=== PATIENT | female | born 1990 | race Caucasian/White ===

== ENCOUNTER 2016-05-01 13:34 | Emergency (ER) | payer OTHER ==
[~2016-05-01] VITALS: Ht 157.5 cm; Wt 54.5 kg
[~2016-05-01 13:34] MED LIST: AZIT250T94 PO; IBUP-1542 PO
[2016-05-01 13:50] VITALS: Ht 157.5 cm; Wt 54.5 kg
[2016-05-01] MEDS ORDERED: AZIT250T94 PO (14:22)
[2016-05-01] MEDS ORDERED: D-ME473S18 PO (14:22)
[2016-05-01] MEDS ORDERED: IBUP-1542 PO (14:22)
--- NOTE | 2016-05-01 14:32 | ERD ---
ER Documentation Chief Complaint Date/Time DATE: 05/01/16 TIME: 14:25 Chief Complaint Cough and body aches. HPI This 25-year-old female presents with a 2 day history of productive cough, body aches and fever. She has sore throat nasal congestion as well. She denies vomiting, abdominal pain, diarrhea, neck stiffness, rashes. ROS All systems reviewed and are negative except as per history of present illness. Medications Home Meds Active Scripts Dextromethorphan Hb-Promethazine Hcl (Promethazine DM Syrup) 473 Ml Syrup, 5 ML PO Q6H Y for COUGH, #4 OZ Prov:RADHA BRAGA MD 05/01/16 Azithromycin* (Zithromax*) 250 Mg Tablet, 250 MG PO .ZPACK DIRECTED, #6 TAB TAKE 500 MG (2 TABS) THE FIRST DAY THEN 250 MG (1 TAB) DAYS 2-5 Prov:RADHA BRAGA MD 05/01/16 Ibuprofen* (Motrin*) 600 Mg Tab, 600 MG PO Q6, #15 TAB Prov:RADHA BRAGA MD 05/01/16 Ibuprofen* (Motrin*) 600 Mg Tab, 600 MG PO Q6H Y for PAIN AND OR ELEVATED TEMP, #30 TAB Prov:LISSY ANN PA-C 07/31/15 Azithromycin* (Zithromax*) 250 Mg Tablet, 250 MG PO .ZPACK DIRECTED, #6 TAB TAKE 500 MG (2 TABS) THE FIRST DAY THEN 250 MG (1 TAB) DAYS 2-5 Prov:LISSY ANN PA-C 07/31/15 Allergies Allergies: Coded Allergies: Penicillins (Verified Allergy, Mild, 12/16/13) PMhx/Soc History of Surgery: Yes (TUBE LIGATION) Anesthesia Reaction: No Hx Neurological Disorder: No Hx Respiratory Disorders: No Hx Cardiac Disorders: No Hx Psychiatric Problems: No Hx Miscellaneous Medical Probl: No Hx Alcohol Use: No Hx Substance Use: No Hx Tobacco Use: No Smoking Status: Never smoker Physical Exam Physical Exam Const: [] Alert, [id number]. Head: Atraumatic Eyes: Normal Conjunctiva ENT: Normal External Ears, Nose and Mouth. TMs and oropharynx normal. Neck: Full range of motion..~ No meningismus. Resp: Clear to auscultation bilaterally Cardio: Regular rate and rhythm, no murmurs Abd: Soft, non tender, non distended. Normal bowel sounds Skin: No petechiae or rashes Back: No midline or flank tenderness Ext: No cyanosis, or edema Neur: Awake and alert Psych: Normal Mood and Affect Procedures/MDM Patient presents with acute febrile illness, body aches and URI symptoms consistent with a viral illness or influenza. She has productive cough will be discharged home with a prescription of promethazine and ibuprofen. Patient will be given a prescription for Zithromax but encouraged to hold onto it for 3- 4 days and take only for persistent productive cough but otherwise allow 2-4 days for viral illness to resolve. The patient was stable with no new complaints during the ER course. Clinically, there is no current evidence to suggest meningitis, sepsis, acute abdomen, pneumonia, acute coronary syndrome, pulmonary embolism, or any other emergent condition appearing to require further evaluation or hospitalization. The patient should certainly return for any new or worsening symptoms per the aftercare instructions. They should otherwise follow-up with her primary care doctor for reevaluation this week. Departure Diagnosis: Primary Impression: Upper respiratory infection URI type: unspecified URI Qualified Code: J06.9 - Upper respiratory tract infection, unspecified type Condition: Stable Patient Instructions: Acute Bronchitis, Fever Control (Adult), Uri, Viral, No Abx (Adult) Additional Instructions: Likely viral illness or influenza which should resolve without antibiotics in 3- 5 days. Okay to hold antibiotics 3-4 days for productive mucus. RADHA BRAGA MD May 01, 2016 14:32
== END 2016-05-01 14:40 | disposition home or self-care (01) ==
LOC: FTE 13:34
DX: J06.9 Acute upper respiratory infection, unspecified (principal)
CPT/HCPCS: 99284

== ENCOUNTER 2016-09-06 22:22 | Emergency (ER) | payer SELFPAY ==
[~2016-09-06] VITALS: Ht 162.6 cm; Wt 54.5 kg
[~2016-09-06 22:22] MED LIST changes: +D-ME473S18 PO
[2016-09-07 00:04] VITALS: Ht 162.6 cm; Wt 54.5 kg
[2016-09-07] MEDS ORDERED: ONDA4TAB14 PO (00:55)
[2016-09-07] MEDS ORDERED: LOPE2CAP PO (00:55)
--- NOTE | 2016-09-07 05:46 | ERA ---
ER Documentation Chief Complaint Date/Time DATE: 09/07/16 TIME: 05:44 Chief Complaint DIARRHEA STARTED EARLIER TODAY, NAUSEA, ABDOMINAL PAIN HPI This is a 26-year-old female who presents with nausea and diarrhea 3 days. Patient has been able to tolerate p.o. describes the diarrhea as watery 3 per day. Patient denies anorexia, weight loss, migrating pain, constipation, postprandial abdominal pain, new or recently changed medications, genital pain or ingestion of new or undercooked food. Patient has not done anything at this time to relieve the symptoms. ROS All systems reviewed and are negative except as per history of present illness. Medications Home Meds Active Scripts Loperamide Hcl* (Imodium*) 2 Mg Capsule, 2 MG PO .AFTER EA LOOSE BM Y for DIARRHEA, #10 TAB Prov:VENKAT RIBERA PA-C 09/07/16 Ondansetron (Ondansetron Odt) 4 Mg Tab.rapdis, 4 MG PO Q6H Y for NAUSEA AND/OR VOMITING, #10 TAB Prov:VENKAT RIBERA PA-C 09/07/16 Dextromethorphan Hb-Promethazine Hcl (Promethazine DM Syrup) 473 Ml Syrup, 5 ML PO Q6H Y for COUGH, #4 OZ Prov:RADHA BRAGA MD 05/01/16 Azithromycin* (Zithromax*) 250 Mg Tablet, 250 MG PO .ZPACK DIRECTED, #6 TAB TAKE 500 MG (2 TABS) THE FIRST DAY THEN 250 MG (1 TAB) DAYS 2-5 Prov:RADHA BRAGA MD 05/01/16 Ibuprofen* (Motrin*) 600 Mg Tab, 600 MG PO Q6, #15 TAB Prov:RADHA BRAGA MD 05/01/16 Ibuprofen* (Motrin*) 600 Mg Tab, 600 MG PO Q6H Y for PAIN AND OR ELEVATED TEMP, #30 TAB Prov:LISSY ANN PA-C 07/31/15 Azithromycin* (Zithromax*) 250 Mg Tablet, 250 MG PO .ZPACK DIRECTED, #6 TAB TAKE 500 MG (2 TABS) THE FIRST DAY THEN 250 MG (1 TAB) DAYS 2-5 Prov:LISSY ANN PA-C 07/31/15 Allergies Allergies: Coded Allergies: Penicillins (Verified Allergy, Mild, 12/16/13) PMhx/Soc Medical and Surgical Hx: pt denies Medical Hx, pt denies Surgical Hx History of Surgery: Yes (TUBE LIGATION) Anesthesia Reaction: No Hx Neurological Disorder: No Hx Respiratory Disorders: No Hx Cardiac Disorders: No Hx Psychiatric Problems: No Hx Miscellaneous Medical Probl: No Hx Alcohol Use: No Hx Substance Use: No Hx Tobacco Use: No Smoking Status: Never smoker Physical Exam Vitals Vital Signs Date Time Temp Pulse Resp B/P Pulse Ox O2 Delivery O2 Flow Rate FiO2 09/07/16 00:04 98.4 85 18 133/81 100 Physical Exam Const: Well-appearing well-developed 26-year-old female who is sitting up in the exam bed on presentation Head: Atraumatic Eyes: Normal Conjunctiva ENT: Normal External Ears, Nose and Mouth. Neck: Full range of motion..~ No meningismus. Resp: Clear to auscultation bilaterally Cardio: Regular rate and rhythm, no murmurs Abd: Hyperactive bowel sounds. Soft, non tender, non distended. No McBurney 's point tenderness. Skin: No petechiae or rashes Back: No midline or flank tenderness Ext: No cyanosis, or edema Neur: Awake and alert Psych: Normal Mood and Affect Procedures/MDM Well-appearing 18-year-old female presenting with nausea and diarrhea 3 days. Patient's loose stools are 2-3 times per day. No specific characteristics were able to be given. Patient was given a test which was negative. Patient had no abdominal tenderness and I have a very low suspicion for appendicitis. Patient was evaluated and worked up for abdominal discomfort. Patient was given Zofran in the ED with resolution of nausea. The workup included test which was negative. The current most likely diagnosis is viral gastroenteritis. The treatment plan will thus include loperamide to control diarrhea as well as Zofran for the nausea.. At this time I do not suspect appendicitis, ectopic , ovarian cyst, PID , UTI, intestinal ischemia, peritonitis, intestinal obstruction, perforated viscus, acute pancreatitis, cholelithiasis, cholangitis, mechanical obstruction , or AAA. On repeat exam, the abdominal exam remains unchanged with no tenderness and minimal hyperactive bowel sounds. The patient is well appearing, and tolerates PO. I have spoke with the patient regarding their condition and future management. They have verbally responded that they understand their status and treatment plan. The patients vitals are stable, and their current condition is appropriate for discharge. The patient will be given discharge instructions with return precautions. Departure Diagnosis: Primary Impression: Viral gastroenteritis due to [place]-like agent Condition: Stable Patient Instructions: Gastroenteritis, Viral (6Y-Adult) Additional Instructions: Follow up with your PCP within the next 1-3 days for a more thorough evaluation and a possible referral to a specialist. Return the the emergency department immediately if symptoms worsen or change. If you have any questions regarding medications, ask your pharmacist or us before you leave. If any adverse reactions occur while taking your medications, discontinue the treatment and return to the emergency department immediately. Take your medications as directed, and complete the entire course of treatment. VENKAT RIBERA PA-C Sep 07, 2016 05:46
== END 2016-09-07 01:05 | disposition home or self-care (01) ==
LOC: FTE 22:22
DX: A08.4 Viral intestinal infection, unspecified (principal)
CPT/HCPCS: 99283

== ENCOUNTER 2016-09-17 12:47 | Emergency (ER) | payer SELFPAY ==
[~2016-09-17] VITALS: Ht 160 cm; Wt 56.0 kg
[~2016-09-17 12:47] MED LIST changes: +LOPE2CAP PO; +ONDA4TAB14 PO
[2016-09-17 13:01] VITALS: Ht 160 cm; Wt 56.0 kg
[2016-09-17] MEDS ORDERED: EPIN0.3P4 INJ (13:42)
[2016-09-17] MEDS ORDERED: DIPH12.59 PO (13:42)
[2016-09-17] MEDS ORDERED: DIPHENHYDRAMINE 2.5 MG/ML 5ML CUP PO ONE (14:00)
[2016-09-17] MEDS ORDERED: DEXAMETHASONE 10 MG/ML 1 ML INJ IM ONE (14:00)
--- NOTE | 2016-09-17 16:26 | ERD ---
ER Documentation Chief Complaint Date/Time DATE: 09/17/16 TIME: 16:24 Chief Complaint splashed with cleaning solution yesterday-rash throughout body today HPI Patient is a 26-year-old female with no medical problems who presents with a rash. She says that she has a rash to her whole body. She said that it started when she had a "chemical disinfectant" splash on her right thigh last night. She works in cleaning services. She said 3 hours after the contact with the cleaning solution she felt dizzy, nausea, headache, and the rash started. The rash has gotten worse today. She denies trouble breathing or swallowing. She has no treatment as of yet. She said that she is not able to take pills and is recommended a shot of steroids instead of pills. She does not know the name of her primary doctor. Upon review of old medical records the patient has multiple visits for various complaints. ROS All systems reviewed and are negative except as per history of present illness. Medications Home Meds Active Scripts Diphenhydramine Hcl* (Diphenhydramine Hcl*) 12.5 Mg/5 Ml Elixir, 10 ML PO Q6H Y for ITCHING/RASH, #8 OZ Prov:RADHAMES COTTO MD 09/17/16 Epinephrine (Epipen 2-Saleem) 0.3 Mg/0.3 Ml Pen.injctr, 1 EA INJ ONCE Y for ALLERGIC REACTION, #1 EA Prov:RADHAMES COTTO MD 09/17/16 Loperamide Hcl* (Imodium*) 2 Mg Capsule, 2 MG PO .AFTER EA LOOSE BM Y for DIARRHEA, #10 TAB Prov:VENKAT RIBERA PA-C 09/07/16 Ondansetron (Ondansetron Odt) 4 Mg Tab.rapdis, 4 MG PO Q6H Y for NAUSEA AND/OR VOMITING, #10 TAB Prov:VENKAT RIBERA PA-C 09/07/16 Dextromethorphan Hb-Promethazine Hcl (Promethazine DM Syrup) 473 Ml Syrup, 5 ML PO Q6H Y for COUGH, #4 OZ Prov:RADHA BRAGA MD 05/01/16 Azithromycin* (Zithromax*) 250 Mg Tablet, 250 MG PO .MARCUS DIRECTED, #6 TAB TAKE 500 MG (2 TABS) THE FIRST DAY THEN 250 MG (1 TAB) DAYS 2-5 Prov:RADHA BRAGA MD 05/01/16 Ibuprofen* (Motrin*) 600 Mg Tab, 600 MG PO Q6, #15 TAB Prov:RADHA BRAGA MD 05/01/16 Ibuprofen* (Motrin*) 600 Mg Tab, 600 MG PO Q6H Y for PAIN AND OR ELEVATED TEMP, #30 TAB Prov:LISSY ANN PA-C 07/31/15 Azithromycin* (Zithromax*) 250 Mg Tablet, 250 MG PO .ZPACK DIRECTED, #6 TAB TAKE 500 MG (2 TABS) THE FIRST DAY THEN 250 MG (1 TAB) DAYS 2-5 Prov:LISSY ANN PA-C 07/31/15 Allergies Allergies: Coded Allergies: Penicillins (Verified Allergy, Mild, 09/17/16) PMhx/Soc History of Surgery: Yes (TUBE LIGATION) Anesthesia Reaction: No Hx Neurological Disorder: No Hx Respiratory Disorders: No Hx Cardiac Disorders: No Hx Psychiatric Problems: No Hx Miscellaneous Medical Probl: No Hx Alcohol Use: No Hx Substance Use: No Hx Tobacco Use: No Smoking Status: Never smoker FmHx Family History: diabetes Physical Exam Vitals Vital Signs Date Time Temp Pulse Resp B/P Pulse Ox O2 Delivery O2 Flow Rate FiO2 09/17/16 13:01 98.8 112 18 133/71 99 Physical Exam Const: No acute distress Head: Atraumatic Eyes: Normal Conjunctiva ENT: Normal External Ears, Nose and Mouth. No oropharyngeal swelling Neck: Full range of motion..~ No meningismus. No stridor over the neck Resp: Clear to auscultation bilaterally Cardio: Regular rate and rhythm, no murmurs Abd: Soft, non tender, non distended. Normal bowel sounds Skin: Coalescing urticaria diffusely throughout the body which blanches Back: No midline or flank tenderness Ext: No cyanosis, or edema Neur: Awake and alert Psych: Normal Mood and Affect Results 24 hrs Current Medications Medications (Trade) Dose Ordered Sig/[place]erson Route PRN Reason Start Time Stop Time Status Last Admin Dose Admin Dexamethasone (Decadron) 10 mg ONCE ONCE IM 09/17/16 14:00 09/17/16 14:01 DC 09/17/16 13:53 Diphenhydramine HCl (Benadryl Liquid Cup) 25 mg ONCE ONCE PO 09/17/16 14:00 09/17/16 14:01 DC 09/17/16 13:53 Procedures/MDM Patient is a 26-year-old female presents with what appears to be an acute allergic reaction. The patient will be given Decadron IM and Benadryl liquid. She will be given a prescription for Benadryl liquid as well as an EpiPen. There is no signs of angioedema at this time. I believe outpatient management is appropriate. I told the patient to avoid contact with this cleaning solution in the future. She can return for any worsening symptoms. The patient understands the plan is okay for discharge at this time. Departure Diagnosis: Primary Impression: Allergic reaction Encounter type: initial encounter Qualified Code: T78.40XA - Allergic reaction, initial encounter Additional Impression: Rash Condition: Fair Patient Instructions: First Aid: Allergic Reactions Additional Instructions: Call your primary care doctor TOMORROW for an appointment during the next 1-2 days.See the doctor sooner or return here if your condition worsens before your appointment time. RADHAMES COTTO MD Sep 17, 2016 16:26
== END 2016-09-17 14:20 | disposition home or self-care (01) ==
LOC: FTE 12:47
DX: R21 Rash and other nonspecific skin eruption (principal)
CPT/HCPCS: 96372; J1100